=== PATIENT | female | born 1965 | race Two or more races ===

== ENCOUNTER → 2024-05-21 | Outpatient (CLI) | payer MEDICAID, SELFPAY ==
--- NOTE | 2024-05-21 08:00 | XR_ITS ---
Examination: CT chest, without intravenous contrast. Sagittal and coronal 2-D reconstructions. Exam date and time: May 21, 2024 0854 hours INDICATIONS: Nicotine dependence, smoking history 20 years CTDI:vol (mGy) 7.40 DLP: (mGycm) 249 Technique: Multiple 3.0 mm axial sections of the chest to been obtained. Bone and lung density settings are obtained. Sagittal and coronal 2-D reconstructions have been obtained. Low dose protocols were performed. One or more of the following dose reduction techniques were used; automated exposure control, adjustment of the mA and/or KV according to patient size, use of iterative reconstruction technique. Findings: No thoracic aortic aneurysm dilatation Pulmonary artery segments are not enlarged No paratracheal tracheobronchial or bronchopulmonary adenopathy 4.6 mm pulmonary nodule left lower lobe, noncalcified No pneumonia or pulmonary edema No visualized liver or splenic lesion No pancreatic or adrenal mass Mild thoracic spondylosis IMPRESSION: 4.6 mm pulmonary nodule left lower lobe, with this study as baseline, recommend continued 6 month follow-up CT chest without contrast
== END | disposition home or self-care (01) ==
LOC: CCTX 05-23 07:42
PROVIDERS: Referring Provider Nurse Practitioner Family; Visit Provider Nurse Practitioner Family
DX: R91.1 Solitary pulmonary nodule (principal); F17.210 Nicotine dependence, cigarettes, uncomplicated
CPT/HCPCS: 71250

== ENCOUNTER → 2024-05-24 | Outpatient (CLI) | payer MEDICAID, SELFPAY ==
--- NOTE | 2024-05-24 10:36 | XR_ITS ---
Examination: Bilateral hips, AP pelvis, 5 views Technique: AP, lateral views both hips, AP pelvis, 5 views Exam date and time: May 24, 2024 1043 hours INDICATIONS: Bilateral hip pain beginning one year ago FINDINGS: Prominent osteopenia Moderate narrowing right and left hip joints No right or left hip fracture Calcification above the greater trochanter left hip Bones of the pelvis intact IMPRESSION: Moderate narrowing right and left hip joints
--- NOTE | 2024-05-24 10:36 | XR_ITS ---
Examination: Lumbar spine 3 views Technique one AP lateral coned lateral lower lumbar spine 3 views Exam date and time: May 24, 2024 1056 hours INDICATIONS: Low back pain beginning one year ago. FINDINGS: Prominent osteopenia No lumbar fracture Mild to moderate disc narrowing L5-S1 mild disc narrowing L4-L5 No spondylolisthesis IMPRESSION: Mild to moderate degenerative disc disease L5-S1
== END | disposition home or self-care (01) ==
LOC: CDIM 10:15
PROVIDERS: PCP Nurse Practitioner Family; Referring Provider Nurse Practitioner Family; Visit Provider Nurse Practitioner Family
DX: M25.852 Other specified joint disorders, left hip (principal); M25.851 Other specified joint disorders, right hip; M51.379 Other intervertebral disc degeneration, lumbosacral region without mention of lumbar back pain or lower extremity pain
CPT/HCPCS: 72100; 73523